=== PATIENT | male | born 1990 | race Two or more races ===

== ENCOUNTER 2017-10-03 19:55 | Emergency (ER) | payer SELFPAY ==
[2017-10-03] MEDS ORDERED: SULFAMETHOXAZOLE/TRIMETHOPRIM 800-160 MG TABLET PO ONE (22:12)
--- NOTE | 2017-10-03 22:17 | ER Document Report ---
ED Extremity Problem, Lower - General Chief Complaint: Leg Injury Stated Complaint: POSSIBLE SKIN INFECTION LEFT PACHECO Time Seen by Provider: 10/03/17 22:11 Mode of Arrival: Ambulatory Information source: Patient TRAVEL OUTSIDE OF THE [place] IN LAST 30 DAYS: No - HPI Patient complains to provider of: Swelling Notes: 27-year-old male without significant medical history presents with pain swelling and pruritus to his left pretibial region. This is been there for weeks has slight improvement intermittently with cortisone. Starts as a little bump which resolves then develops another one in the region. He has noted some redness and swelling. 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 He wears tennis shoes and is unsure if he has had any little injury that he may have not noticed. Denies any fever or systemic symptoms. No chest pain breathing difficulty. No calf pain or other leg discomfort. It is isolated to that region. Denies fever. No prior history of diabetes or VTE. Past Medical History - Social History Smoking Status: Current Every Day Smoker Frequency of alcohol use: Daily Family History: Reviewed & Not Pertinent Review of Systems - Review of Systems -: Yes All other systems reviewed and negative Physical Exam - Vital signs Vitals: Temp Pulse Resp BP Pulse Ox 98.4 F 72 16 123/61 97 10/03/17 20:34 10/03/17 20:34 10/03/17 20:34 10/03/17 20:34 10/03/17 20:34 - Notes Notes: Physical Exam: GENERAL: VS as per nursing doc. Well-appearing, well-nourished and in no acute distress. HEAD: Atraumatic, normocephalic. EYES: Pupils equal round and reactive to light, extraocular movements intact, sclera anicteric, no conjunctival injection or discharge. ENT: Nares patent, oropharynx clear without exudates. Moist mucous membranes. NECK: Normal range of motion, supple without lymphadenopathy. No JVD. No Carotid Bruits. LUNGS: Breath sounds slightly coarse to auscultation bilaterally and equal. No wheezes rales or rhonchi. HEART: Normal S1S2. Regular rate and rhythm without murmurs. Equal peripheral pulses. ABDOMEN: Soft, non-tender EXTREMITIES: Normal range of motion. No calf tenderness. Negative Homans. No edema. Slightly enlarged left inguinal lymph node which is nontender. No overlying erythema or drainage. Neurovascularly intact distally. See skin below. NEUROLOGICAL: Cranial nerves grossly intact. Normal speech. Normal sensory and motor exams. No gross cerebellar abnormalities. PSYCH: Normal mood, normal affect. SKIN: Warm, dry, no cyanosis, no splinter hemorrhages. Cap refill < 2 sec. there is an erythematous patch in the left pretibial region slightly more proximal. It does not involve the knee or prepatellar area. It is below the tibial tuberosity. There is mild erythema and edema with some mild associated tenderness. There are some ulcerations of various ages some of which have completely healed. There is no drainage noted from these Course - Re-evaluation Re-evalutation: 10/03/17 22:17 This appears to have been going on for quite a while. He does describe somewhat of a little bit of any allergic component though appears now to have some secondary infection. No identifiable cause. Is not wearing boots. Drainage has not been purulent and only a small amount of clear drainage. At this point discussed with the patient initially treating the infectious cellulitic component and getting follow-up if it continues to occur and watch for any aggravating factors. He will use caution to keep the area protected. - Vital Signs Vital signs: Temp Pulse Resp BP Pulse Ox 98.4 F 72 16 123/61 97 10/03/17 20:34 10/03/17 20:34 10/03/17 20:34 10/03/17 20:34 10/03/17 20:34 Discharge - Discharge Clinical Impression: Cellulitis of leg without foot, left Condition: Good Disposition: HOME, SELF-CARE Instructions: Cellulitis ([facility]) Additional Instructions: Keep area clean dry and protected. Finish all of the antibiotics even if improving. Ensure you get follow-up in approximately 1 week to 10 days to ensure resolution. Call tomorrow to arrange. Return otherwise for worsening or concern. Prescriptions: Sulfamethoxazole/Trimethoprim [Bactrim Ds Tablet] 1 each PO BID #20 tablet
[2017-10-03 22:35] VITALS: BP 110/63
== END 2017-10-03 22:34 | disposition home or self-care (01) ==
LOC: ER 19:55
DX: L03.116 Cellulitis of left lower limb (principal); L08.9 Local infection of the skin and subcutaneous tissue, unspecified; F17.200 Nicotine dependence, unspecified, uncomplicated
CPT/HCPCS: 99283